=== PATIENT | male | born 1980 | race Caucasian/White ===

== ENCOUNTER 2018-12-28 10:55 | Emergency (ER) | payer MEDICAID ==
[~2018-12-28] VITALS: Ht 185.4 cm; Wt 102.5 kg
[2018-12-28 10:59] VITALS: BP 150/89
--- NOTE | 2018-12-28 11:31 | NUR ---
PT SITTING UPRIGHT ON BED. PT HERE FOR SCRIPT FOR DDADP. LAST DOSE: LAST NOC. CURRENTLY SEEKING NEW PCP. PRESENTS EMPTY BOX W/ RX LABEL: 0.1ML NASAL SPRAY BID. PT'S SPOUSE IN ROOM.
[2018-12-28] MEDS ORDERED: DESM10SP6 NAS (11:33)
[2018-12-28 12:18] LABS: BASOPHILS # (AUTO) 0.02 x10^3/uL (0-0.1); BASOPHILS % (AUTO) 0 % (0-1); EOSINOPHILS # (AUTO) 0.57 x10^3/uL (0-0.4); EOSINOPHILS % (AUTO) 8 % (1-7); LYMPHOCYTES # (AUTO) 2.53 x10^3/uL (1-3.4); LYMPHOCYTES % (AUTO) 34 % (22-44); MD NO; MEAN CORPUSCULAR HEMOGLOBIN 29.8 pg (27.5-34.5); MEAN CORPUSCULAR HGB CONC 33.9 g/dL (33.2-36.2); MEAN CORPUSCULAR VOLUME 88.1 fL (81-97); MEAN PLATELET VOLUME 8.1 fL (7.4-10.4); MONOCYTES # (AUTO) 0.51 x10^3/uL (0.2-0.8); MONOCYTES % (AUTO) 7 % (2-9); NEUTROPHILS # (AUTO) 3.88 x10^3/uL (1.8-6.8); NEUTROPHILS % (AUTO) 52 % (42-75); PLATELET COUNT 270 x10^3/uL (130-400); RED BLOOD COUNT 5.01 x10^6/uL (4.38-5.82); RED CELL DISTRIBUTION WIDTH 13.4 % (9.4-14.8)
[2018-12-28 12:23] LABS: ANION GAP 6 mmol/L (5-15); CALCIUM 8.8 mg/dL (8.5-10.1); CHLORIDE 107 mmol/L (98-107); CREATININE 1.08 mg/dL (0.7-1.3)
== END 2018-12-28 12:57 ==
LOC: EDSEX 10:55 → EDBD 10:55 → ED 12:50
DX: E23.2 Diabetes insipidus (principal); Z76.0 Encounter for issue of repeat prescription
CPT/HCPCS: 36415; 80048; 85025; 99283